=== PATIENT | male | born 1965 | race Caucasian/White ===

== ENCOUNTER → 2017-03-02 | Outpatient (CLI) | payer BC ==
[~2017-03-02] MED LIST: AMBIEN5 MG PO; AUGMENTIN875 MG PO; FLAGYL500 MG PO; NORVASC5 MG PO; NUCYNTA50 MG PO; TYLENOL EXTRA500 MG PO; VITAMIN D-32000 UNI1 PO
== END | disposition disaster alternative care site (69) ==
LOC: GRAD 12:29
DX: C7A.012 Malignant carcinoid tumor of the ileum (principal); K57.30 Diverticulosis of large intestine without perforation or abscess without bleeding; Z98.890 Other specified postprocedural states
CPT/HCPCS: Q9967

== ENCOUNTER → 2017-03-08 | Outpatient (CLI) | payer BC | END | disposition disaster alternative care site (69) | LOC: GRAD 10:44 | DX: C7A.012 Malignant carcinoid tumor of the ileum (principal); R10.9 Unspecified abdominal pain; R11.0 Nausea; K57.30 Diverticulosis of large intestine without perforation or abscess without bleeding ==